=== PATIENT | female | born 1945 | race Caucasian/White ===

== ENCOUNTER 2018-06-27 05:40 | Day surgery (SDC) | payer MEDICARE, OTHER ==
[2018-06-26 12:40] LABS: BASOPHILS 0.1 % (0-2); EOSINOPHILS 1.4 % (0-7); HEMATOCRIT 31.4 % (36.0-48.0); HEMOGLOBIN 10.3 g/dL (12-16); IMMATURE GRANULOCYTES 0.2 % (0-5); LYMPHOCYTES 22.1 % (15-50); MCH 30.2 pg (26.0-34.0); MCHC 32.8 g/dL (31.0-37.0); MCV 92.1 fL (80.0-100.0); MEAN PLATELET VOLUME 9.9 fL (7.4-10.4); MONOCYTES 7.9 % (2-11); NEUTROPHILS 68.3 % (40-80); PLATELET COUNT 194 10x3/uL (130-400); RBC 3.41 10x6/uL (4.00-5.40); RDW 14.7 % (11.5-14.5); WBC 8.1 10x3/uL (4.8-10.8)
[2018-06-26 12:59] LABS: ANION GAP 11.7 mmol/L (8-16); CALCIUM 9.1 mg/dL (8.5-10.1); CARBON DIOXIDE 29.7 mmol/L (21.0-32.0); CREATININE - SERUM 3.2 mg/dL (0.6-1.3); POTASSIUM - SERUM 4.4 mmol/L (3.5-5.1)
[2018-06-26 13:03] LABS: APTT 26.2 SECONDS (22.8-39.4); INR 1.02 (0.85-1.17); PROTIME 12.8 SECONDS (11.6-15.0)
[~2018-06-27] VITALS: Ht 167.6 cm; Wt 86.2 kg
--- NOTE | ~2018-06-27 | OP ---
PATIENT NAME: MEGHANN VARELA MEDICAL RECORD: [id number] :47 LOCATION:D.LTAC, LOCATED [facility]IN [facility] ADMISSION DATE: SURGEON: ELDON BENITEZ MD DATE OF OPERATION: 06/27/2018 REFERRING PHYSICIAN: Olga Kate MD PREOPERATIVE DIAGNOSIS: Chronic kidney disease V. POSTOPERATIVE DIAGNOSIS: Chronic kidney disease V. OPERATION PERFORMED: Creation of a Katelyn AV fistula in the right antecubital space draining both to cephalic and basilic outflow. SURGEON: Eldon Benitez MD ANESTHESIA: Regional block plus MAC per YARN HAULER. PREOPERATIVE NOTE: This 73-year-old white female, senior care resident, has chronic kidney disease and it is anticipated she will require dialysis soon. She was referred to me for provision of long-term access. She is considered a candidate for an AV fistula. With the patient under regional block plus monitoring and sedation per YARN HAULER, she was prepped and draped in a sterile manner. I applied a William drain as a proximal venous tourniquet and used topical nitroglycerin on the arm and forearm. On duplex ultrasound examination, the cephalic vein in the arm above the antecubital space was rather small where as the basilic vein was quite dominant; however, I thought it was possible that a cephalic vein AV fistula might be obtained. The median cubital vein drained to both the cephalic and basilic. I made a transverse antecubital incision and exposed the veins in brachial artery. They were all controlled with Silastic loops and the median cubital vein was mobilized down into the forearm and the median antebrachial vein was divided and ligated with Vicryl ties and a Hemoclip. The deep branch or perforating branch was preserved. It was ligated and divided with Vicryl and a Hemoclip. The veins were flushed with heparinized saline and treated with topical papaverine. The brachial artery was occluded with Silastic loops and opened and flushed with heparinized saline. The deep or perforating venous tributary was bevelled and then anastomosed end-to-side to the artery with running 7-0 Prolene. The anastomosis when completed was hemostatic and there was immediate excellent flow in the fistula with release of the occluding loops. There was good pulsatile continuous Doppler flow in the cephalic vein in the upper arm as well as in the basilic vein. The wound was then closed with interrupted inverted 3-0 Vicryl and running intracuticular 4-0 Monocryl and Dermabond glue. It was dressed with Maxorb Ag, Tegaderm, and Cavilon skin prep. The patient will be discharged to a senior care today and continue her same medications. She can leave the initial operative dressing intact and come back to see me in my office in 2 weeks. My plan will be to wait and see how this fistula develops. It will likely be necessary to return her to the operating room either to ligate the basilic vein to channel blood flow into the upper arm cephalic or to ligate the cephalic vein and translocate the basilic. OPERATIVE REPORT [id number] MEGHANN VARELA TRANSINT:[id number] Voice Confirmation ID: [id number] DOCUMENT ID: [id number] ELDON BENITEZ MD at 1451 CC: OLGA KATE MD [id number] DICTATION DATE: 06/27/18 1009 FINAL TESTER: 06/27/18 1204 [facility] 06/27/18 [facility] [address] [place] [address]
[~2018-06-27 05:40] MED LIST: ALDACTONE25 MG PO; ATACAND32 MG PO; BAYER CHEWABLE81 MG PO; BIOTIN5 MG PO; BUMEX 1 MG TAB1 MG PO; BUSPAR 15 MG TA15 MG PO; BYSTOLIC5 MG PO; CALCIUM 500 + D1 TAB PO; COREG12.5 MG PO; DEMADEX20 MG PO; DIABETA5 MG PO; FERRETTS324 MG PO; GLUCOPHAGE1000 MG PO; HYDRALAZINE HC100 MG PO; LEVEMIR100 U/M1 SC; LIPITOR80 MG PO; MAG-OXIDE400 MG PO; MECLIZINE HCL25 MG PO; METOLAZONE5 MG PO; NORVASC5 MG PO; NOVOLOG100 U/M1 SC; OYSCO 500+D TAB1 TAB PO; PLAVIX75 MG PO; PROTONIX40 MG PO; PYRIDOXINE HCL100 MG PO; RESTORIL15 MG PO; SYNTHROID125 MCG PO; VITAMIN B-121000 MCG PO; VITAMIN D5000 UNIT PO; WELCHOL3.75 GM PO; ZETIA10 MG PO
[2018-06-27 06:29] VITALS: BP 147/59; Ht 167.6 cm; Wt 86.2 kg
== END 2018-06-27 11:48 | disposition home or self-care (01) ==
LOC: D.OPS 05:40 → D.PAN 08:00 → D.OPS 08:00
PROVIDERS: Surgery
DX: N18.6 End stage renal disease (principal)

== ENCOUNTER 2019-02-20 07:52 | Day surgery (SDC) | payer MEDICARE, OTHER ==
[~2019-02-20] VITALS: Ht 170.2 cm; Wt 72.6 kg
[2019-02-20 08:31] LABS: BASOPHILS 0.1 % (0-2); EOSINOPHILS 1.6 % (0-7); HEMATOCRIT 35.8 % (36.0-48.0); HEMOGLOBIN 11.4 g/dL (12-16); IMMATURE GRANULOCYTES 0.1 % (0-5); LYMPHOCYTES 18.4 % (15-50); MCH 30.6 pg (26.0-34.0); MCHC 31.8 g/dL (31.0-37.0); MEAN PLATELET VOLUME 9.9 fL (7.4-10.4); MONOCYTES 9.9 % (2-11); NEUTROPHILS 69.9 % (40-80); PLATELET COUNT 171 10x3/uL (130-400); RBC 3.73 10x6/uL (4.00-5.40)
[2019-02-20 08:38] LABS: ANION GAP 16.9 mmol/L (8-16); CALCIUM 8.8 mg/dL (8.5-10.1); CARBON DIOXIDE 27.8 mmol/L (21.0-32.0); CREATININE - SERUM 3.4 mg/dL (0.6-1.3); POTASSIUM - SERUM 3.7 mmol/L (3.5-5.1)
[2019-02-20 08:54] LABS: INR 1.12 (0.85-1.17); PROTIME 13.9 SECONDS (11.6-15.0)
[2019-02-20] MEDS ORDERED: DEMADEX20 MG PO (10:11)
[2019-02-20 10:16] VITALS: BP 112/58; Ht 170.2 cm; Wt 72.6 kg
[2019-02-20] MEDS ORDERED: HYDROCODON-ACE1 EAC7 PO (17:37)
--- NOTE | 2019-02-20 20:10 | NUR ---
IV REMOVED AMD PT ASSISTED WITH GETTING DRESSED. DISCHARGED WITH FRIEND.
--- NOTE | 2019-02-23 16:40 | OP ---
PATIENT NAME: MEGHANN SUNSHINE MEDICAL RECORD: [id number] :47 LOCATION:[facility]EL ADMISSION DATE: SURGEON: ELDON BENITEZ MD DATE OF OPERATION: 02/20/2019 REFERRED BY: Srinivasa Rolle MD PREOPERATIVE DIAGNOSES: End-stage renal disease and dependence on hemodialysis and thrombosis of brachiocephalic arteriovenous fistula. POSTOPERATIVE DIAGNOSES: End-stage renal disease and dependence on hemodialysis and thrombosis of brachiocephalic arteriovenous fistula. OPERATION PERFORMED: Creation of a brachial artery to translocated basilic vein AV fistula in the right arm, followed by laparoscopic implantation of a Medcomp swan neck dual cuff coil left-sided peritoneal dialysis catheter. SURGEON: Eldon Benitez MD ANESTHESIA: General endotracheal per HEAD OF SALES AND MARKETING. PREOPERATIVE NOTE: Mr. Sunshine is a very nice 73-year-old white female patient with end-stage renal disease, presently on chronic hemodialysis with a right internal jugular tunneled dialysis catheter. She needs long-term access. I have operated on her within the last couple of months and created a brachial artery to cephalic vein fistula on the right arm that has failed to develop although she has a developing basilic vein. I planned to go ahead with a brachial artery to translocated basilic vein fistula creation today and also she is to have laparoscopy and implantation of a PD catheter. DESCRIPTION OF PROCEDURE: Under general endotracheal anesthesia, the patient's right arm and abdomen were prepped and draped in a sterile manner. The arm was approached first. I made an incision over the basilic vein from antecubital space to axilla and freed it from the surrounding structures and divided numerous tributaries between Vicryl ties. Sensory nerves crossing the vein were preserved as much as possible. The vein was clamped and divided near the existing arterial anastomosis. It was bevelled and flushed with heparinized saline. The vein was fully mobilized up to the axilla and treated with topical papaverine. I made a superficial subcutaneous tunnel anterior and lateral to the normal course of the basilic vein and placed the vein within that tunnel, again flushed it with heparinized saline and then performed an end-to-end anastomosis between the two bevelled ends of vein just above the arterial anastomosis. I was done with running 7-0 Prolene and when completed, the suture lines were hemostatic and there was no pursestringing or stenosis at that point, an excellent flow developed immediately in the new fistula. The basilic vein had dilated to greater than a centimeter in diameter all the way from the antecubital space up to the axilla, and so it is of very good caliber already, though still quite soft it needs to mature for another month or 6 weeks before being used. The wounds were irrigated with Ancef/gentamicin solution and infiltrated with 0.25% Marcaine without epinephrine. Wound closure was performed with interrupted inverted 3-0 Vicryl without the use of a drain and skin was closed with running intracuticular 4-0 Monocryl and Dermabond glue. Dressings of Maxorb Ag, Tegaderm, and Cavilon skin prep were applied. The arm was then wrapped with Kerlix and bandage applied to hold the dressing in place. The abdomen was then exposed and the arm tucked to the side. I inserted a 5-mm OPERATIVE REPORT [id number] MEGHANN SUNSHINE 0-degree laparoscope through a small incision in right upper quadrant utilizing a 5-mm XL Optiview port. Pneumoperitoneum was established with carbon dioxide. The scope was exchanged for a 30-degree scope. I saw no significant abnormality within the abdomen. There was no significant omentum low in the abdomen or pelvis. I made an incision at about the level of the umbilicus and to the left of it after measuring from the symphysis pubis with the coiled catheter. I had decided on the basis of that measurement where the anterior rectus sheath penetration should occur. I inserted an introducer needle from that point and directed it distally and with ultrasound created an inter-rectus anterior retroperitoneal tunnel and inserted the guidewire and then dilator peel-away sheaths. The coiled catheter was of course soaked in saline and flushed with heparinized saline and then inserted through the peel-away sheath and the sheath removed. The catheter tended towards the right lower quadrant, but proved to be fairly easy to direct into the pelvis, especially after I introduced second 5-mm port instrumentation throughout the right lower quadrant. The catheter was pulled through a left lateral subcutaneous tunnel to the predetermined exit site and it was then connected to saline and flushed vigorously and then demonstrated to drain freely. A pursestring suture was placed around the catheter at the anterior rectus sheath penetration site to prevent leakage and hold the deeper of the Dacron felt cuffs within the substance of the rectus muscle. The more superficial Dacron felt cuff was left in the subcutaneous tissues about 2 cm from the exit site. The laparoscopic hardware was removed and the wounds all infiltrated with 0.25% Marcaine without epinephrine and wound closure completed with interrupted inverted 3-0 Vicryl and running intracuticular Monocryl and Dermabond glue. The incisions were dressed with Maxorb Ag, Tegaderm, and Cavilon skin prep. A chlorhexidine BioPatch was placed around the dialysis catheter at its exit site and that site was dressed with a Tegaderm and then all covered with a 4 x 4 Medipore with a catheter curled beneath it. At that point then the patient was awakened from her anesthetic and taken to the recovery room. Blood loss throughout the operation had been quite insignificant and estimated 5 cc. None was replaced. No drain was used and no surgical specimen was submitted for histopathology. PLAN: If the patient's pain is adequately controlled, she will be able to go home today and our plan for her to return to see me in my office next week. She is given a prescription for [place] 5/325 to take 1 p.o. q.4 hours p.r.n. pain. She will continue all of her other same preoperative medications and we will try to arrange to have her peritoneal dialysis catheter flushed probably on Tuesday of this week if not tomorrow at [facility]. TRANSINT:[id number] Voice Confirmation ID: [id number] DOCUMENT ID: [id number] cc: [facility] [place], [phone] ELDON BENITEZ MD at 1640 CC: SRINIVASA ROLLE MD [id number] DICTATION DATE: 02/21/19 1234 FINANCIAL PLANNING ADVISOR: 02/21/19 193 [facility] 02/20/19 [facility] [address] [place] [address]
== END 2019-02-20 20:12 | disposition home or self-care (01) ==
LOC: D.OPS 07:52
PROVIDERS: Surgery; ATTEND Internal Medicine Nephrology
DX: T82.868A Thrombosis due to vascular prosthetic devices, implants and grafts, initial encounter (principal); N18.6 End stage renal disease; Z99.2 Dependence on renal dialysis; Z01.812 Encounter for preprocedural laboratory examination

== ENCOUNTER 2019-03-02 16:23 | Inpatient (IN) | payer MEDICARE, OTHER ==
[~2019-03-02] VITALS: Ht 170.2 cm; Wt 72.1 kg
--- NOTE | ~2019-03-02 | OP ---
PATIENT NAME: MEGHANN SUNSHINE MEDICAL RECORD: [id number] :47 LOCATION:D.M2 D.2104 ADMISSION DATE:03/02/19 SURGEON: ELDON BENITEZ MD DATE OF OPERATION: 03/03/2019 REFERRING PHYSICIAN: Olga Kate MD SURGEON: Eldon Benitez MD ANESTHESIA: General by mask per DIRECTOR CENTER. PREOPERATIVE DIAGNOSIS: Abscess, left buttock, possible perianal or perirectal abscess. POSTOPERATIVE DIAGNOSIS: Probable methicillin-resistant Staphylococcus aureus skin and soft tissue abscess, furuncle or folliculitis without communication with the anal canal or rectum. OPERATION PERFORMED: Incision and drainage and debridement of left buttock abscess. SURGEON: Eldon Benitez MD PREOPERATIVE NOTE: Ms. Sunshine is a 73-year-old debilitated white female with end-stage renal disease on chronic hemodialysis. She is about a week status post op creation of a right brachial artery to translocated basilic vein AV fistula. She has a pacemaker defibrillator on the left. She has developed a painful indurated lesion with a whitish center, this is in the left buttock about 8 cm from the anal verge, possibly represents perianal or perirectal abscess or fistula. She is brought to the operating room for incision and drainage. DESCRIPTION OF PROCEDURE: Under anesthesia, the patient was placed in the lateral decubitus position, prepped and draped in sterile manner. The lesion was carefully palpated and I could feel no indurated tract leading to the anus or perianal area more directly. I incised the lesion through the white necrotic center. I obtained a small amount of liquid purulent material. This was swabbed for a stat Gram stain and also for culture for aerobic and anaerobic organisms. I excised the necrotic center or core of the lesion, which was discarded and the underlying pocket was widely opened and explored and no fistulous tract was identified. The wound was irrigated with Ancef/gentamicin solution and generally infiltrated with 1% lidocaine and 0.25% Marcaine with epinephrine. The wound was then packed with quarter-inch iodoform gauze and further sterile dry dressings applied over that and the patient awakened and taken to the recovery room. Blood loss during the procedure was insignificant and unreplaced. Sponges, instruments, and needles were accounted for. No specimen was submitted for histopathology, but serial was sent for Gram stain and culture. PLAN: The patient should be able to resume her diet and usual medications today. Pending her Gram stain and cultures and based on the clinical impression that this is an MRSA lesion, she should be started on doxycycline, and unless there is an indication to change I will plan to continue doxycycline daily for 10 days. She will do hot Sitz baths and hot baths and hot showers and wash with Hibiclens daily. I would like to see that she has 10% povidone iodine treatment OPERATIVE REPORT [id number] MEGHANN SUNSHINE in the nostrils now and then weekly times 2. Very likely she can go home tomorrow with home health referral. They can see her on nondialysis days and assist with her wound care. Basically, she is to keep it clean with hot water and soap and Hibiclens. The packing, which I placed today is not to be replaced after it comes out, and if it has not coming out, it needs to be removed before she goes home tomorrow. I will follow up with her in my office next week. There was no blood loss during the procedure. Sponges, instruments, and needles were accounted for. No drain was used. TRANSINT:[id number] Voice Confirmation ID: [id number] DOCUMENT ID: [id number] ELDON BENITEZ MD CC: OLGA KATE MD [id number] DICTATION DATE: 03/03/19 1024 COAT EXAMINER: 03/03/19 1247 ADM IN [place] [id number] [place] [id number]
[~2019-03-02 16:23] MED LIST changes: +HYDROCODON-ACE1 EAC7 PO
[2019-03-02] MEDS ORDERED: FERROUS SULFAT325 MG PO (16:52)
[2019-03-02] MEDS ORDERED: LEVEMIR IN100 UNITS/ SC (16:54)
[2019-03-02] MEDS ORDERED: SYNTHROID100 MCG PO (16:57)
[2019-03-02 17:41] VITALS: BP 140/73; BMI 24.9
[2019-03-02 19:11] LABS: BASOPHILS 0.1 % (0-2); HEMATOCRIT 31.3 % (36.0-48.0); HEMOGLOBIN 9.9 g/dL (12-16); IMMATURE GRANULOCYTES 0.1 % (0-5); LYMPHOCYTES 18.3 % (15-50); MCH 30.2 pg (26.0-34.0); MCHC 31.6 g/dL (31.0-37.0); MCV 95.4 fL (80.0-100.0); MEAN PLATELET VOLUME 10.9 fL (7.4-10.4); MONOCYTES 9.7 % (2-11); NEUTROPHILS 70.8 % (40-80); PLATELET COUNT 188 10x3/uL (130-400); RBC 3.28 10x6/uL (4.00-5.40); RDW 15.5 % (11.5-14.5); WBC 7.3 10x3/uL (4.8-10.8)
--- NOTE | 2019-03-02 19:21 | NUR ---
PT RESTING IN BED ALERT AND ORIENTED. RTR EVEN AND UNLABORED. PT DENIES ANY NEEDS OR PAIN AT THIS TIME. BED LOW CALL LIGHT WITHIN REACH. WILL CONTINUE TO MONITOR.
[2019-03-02 19:45] LABS: ALBUMIN 2.7 g/dL (3.4-5.0); ANION GAP 13.1 mmol/L (8-16); BILIRUBIN - TOTAL 0.32 mg/dL (0.2-1.3); CALCIUM 8.1 mg/dL (8.5-10.1); CARBON DIOXIDE 28.1 mmol/L (21.0-32.0); CREATININE - SERUM 2.8 mg/dL (0.6-1.3); POTASSIUM - SERUM 3.2 mmol/L (3.5-5.1); PROTEIN - SERUM 6.7 g/dL (6.4-8.2)
[2019-03-02 20:00] VITALS: BP 137/45
[2019-03-03 00:06] VITALS: BP 135/46
--- NOTE | 2019-03-03 01:13 | NUR ---
PT RESTING IN BED WITH EYES CLOSED. RR EVEN AND UNLABORED. BED LOW CALL LIGHT WITHIN REACH. WILL CONTINUE TO MONITOR.
--- NOTE | 2019-03-03 02:38 | NUR ---
I have reviewed this patient and I concur with the Shift Assessment completed by the Licensed Practical Nurse today this shift.
[2019-03-03 04:00] VITALS: BP 129/46
[2019-03-03 05:12] LABS: BASOPHILS 0.3 % (0-2); EOSINOPHILS 1.9 % (0-7); HEMATOCRIT 29.1 % (36.0-48.0); HEMOGLOBIN 9.1 g/dL (12-16); IMMATURE GRANULOCYTES 0.2 % (0-5); LYMPHOCYTES 26.5 % (15-50); MCHC 31.3 g/dL (31.0-37.0); MEAN PLATELET VOLUME 10.3 fL (7.4-10.4); MONOCYTES 10.8 % (2-11); NEUTROPHILS 60.3 % (40-80); PLATELET COUNT 172 10x3/uL (130-400); RBC 3.03 10x6/uL (4.00-5.40); WBC 5.9 10x3/uL (4.8-10.8)
[2019-03-03 05:17] LABS: INR 1.24 (0.85-1.17); PROTIME 15.1 SECONDS (11.6-15.0)
[2019-03-03 05:30] LABS: ANION GAP 14.5 mmol/L (8-16); CALCIUM 8.3 mg/dL (8.5-10.1); CARBON DIOXIDE 26.6 mmol/L (21.0-32.0); CREATININE - SERUM 3.3 mg/dL (0.6-1.3); POTASSIUM - SERUM 3.1 mmol/L (3.5-5.1)
--- NOTE | 2019-03-03 07:15 | NUR ---
PT ASLEEP, DI DNOT WAKE I ENTERED. DI DNOT FURTHER DISTURB AT THIS TIME. CL IN REACH. SRX2.
[2019-03-03] MEDS ORDERED: HYDROCODON-ACE1 EAC7 PO (09:46)
[2019-03-03 09:50] VITALS: Ht 170.2 cm; Wt 72.1 kg
[2019-03-03] MEDS ORDERED: HIBICLENS WASH (09:50)
[2019-03-03 09:51] VITALS: BP 130/53
[2019-03-03] MEDS ORDERED: POVIDONE IODINE 10% (09:55)
[2019-03-03] MEDS ORDERED: VIBRAMYCIN 100100 MG PO (09:57)
[2019-03-03 13:11] VITALS: BP 116/51
--- NOTE | 2019-03-03 14:13 | NUR ---
I have reviewed this patient and I concur with the Shift Assessment completed by the Licensed Practical Nurse today this shift.
--- NOTE | 2019-03-03 16:43 | NUR ---
PT REFUSED SCDS.
[2019-03-03 17:40] VITALS: BP 120/57
--- NOTE | 2019-03-03 18:22 | NUR ---
PT FAMILY IN ROOM. PT ATTEMPTED TO PULL OUT CATH, DID NOT SUCCED. WATCHING CLOSELY IN CASE SH REATTEMPTS. CL IN REACH. SRX2.
--- NOTE | 2019-03-03 18:23 | NUR ---
LAS NOT NOT FOR HER. THI SPT HAD BUTTOX DRESSING CHANGED. BLEEDING, WILL CHANGE AGAIN NEEDED.
--- NOTE | 2019-03-03 20:00 | NUR ---
ROUNDS COMPLETED. VSS, AAX4. NO S/S OF RESP DISTRESS. RR EVEN AND UNLABORED. ASSESED PT BUTTOCK. DRESSING C/D/I. WITH DEPENDS OVER THE DRESSING. MEDS GIVEN AT THIS TIME. DRESSING TO RIGHT LEG C/D/I. PT DENIES ANY FURTHER NEEDS AT THIS TIME. WILL CPOC. CL IN REACH, BED IN LOW, SR UP X2.
--- NOTE | 2019-03-03 22:53 | NUR ---
ASSESED PT DRESSING ON BUTTOCKS. DRESSING WAS BLOOD TINGED DID NOT REINFORCE DRESSING PER PROVIDERS ORDER. CLEANED THE AREA AND APPLIED NEW DEPEND ON PT. PT RESTING COMFORTABLY AT THIS TIME. WILL CPOC.
[2019-03-04 00:20] VITALS: BP 141/50
[2019-03-04 00:29] VITALS: BP 150/42
--- NOTE | 2019-03-04 04:22 | NUR ---
REMOVED PT DRESSING. CLEAN THE SITE. PACKING STILL INTACT. APPLIED NEW DRESSING. PT TOLERATE WELL. PT DENIES ANY FURTHER NEEDS AT THIS TIME. WILL CPOC. CL IN REACH, BED IN LOW, SR UP X2.
[2019-03-04 05:56] VITALS: BP 145/49
--- NOTE | 2019-03-04 08:18 | NUR ---
PT ASLEEP, WOKE EASILY. NO COMPLAINTS OR CONCERNS VOICED. DRESSING C/D/I AT THIS TIME. CL IN REACH, SRX2.
[2019-03-04 09:13] VITALS: BP 139/47
[2019-03-04 10:17] LABS: BASOPHILS 0.4 % (0-2); EOSINOPHILS 1.5 % (0-7); HEMATOCRIT 29.6 % (36.0-48.0); HEMOGLOBIN 9.2 g/dL (12-16); IMMATURE GRANULOCYTES 0.3 % (0-5); LYMPHOCYTES 12.9 % (15-50); MCH 29.8 pg (26.0-34.0); MCHC 31.1 g/dL (31.0-37.0); MCV 95.8 fL (80.0-100.0); MEAN PLATELET VOLUME 10.4 fL (7.4-10.4); MONOCYTES 10.3 % (2-11); NEUTROPHILS 74.6 % (40-80); PLATELET COUNT 175 10x3/uL (130-400); RBC 3.09 10x6/uL (4.00-5.40); RDW 15.5 % (11.5-14.5); WBC 7.3 10x3/uL (4.8-10.8)
[2019-03-04 10:25] LABS: ANION GAP 18.9 mmol/L (8-16); CALCIUM 8.3 mg/dL (8.5-10.1); CARBON DIOXIDE 23.8 mmol/L (21.0-32.0); CREATININE - SERUM 4.7 mg/dL (0.6-1.3); POTASSIUM - SERUM 3.7 mmol/L (3.5-5.1)
--- NOTE | 2019-03-04 11:33 | NUR ---
RX FOR DOXYCYCLINE 100 MG DAILY X 10 DAYS CALLED TO [facility], SPOKE WITH PHARMACIST, MARISABEL
--- NOTE | 2019-03-04 12:41 | MORECARE ---
CASE MANAGEMENT DISCHARGE SUMMARY PATIENT: MEGHANN VARELA UNIT: [id number] ADM DATE: 03/02/19 AGE: 73 : 46 SEX: F ROOM/BED: D.2104 AUTHOR: DEE ANDERSEN PHYSICIAN: REFERRING PHYSICIAN: SRINIVASA BURLESON MD DATE OF SERVICE: 03/04/19 Discharge Plan Patient Name: MEGHANN VARELA Facility: [facility]:[place] : 1945 Planned Disposition: Home with Home Health Anticipated Discharge Date: 03/04/19 Discharge Date: Expected LOS: 2 Initial Reviewer: [email or web address] Initial Review Date: 03/02/2019 Generated: 03/04/19 1:41 pm Patient Name: MEGHANN VARELA Page [phone] at 1241 All edits/amendments must be made on the electronic document DICTATION DATE: 03/04/19 1240 ART FRAMING MANAGER: AUSTEN 03/04/19 1240 RPT#: [id number] DC DATE: STATUS: ADM IN [facility] [address] [place] [address] END OF REPORT
--- NOTE | 2019-03-04 12:48 | MORECARE ---
CASE MANAGEMENT DISCHARGE SUMMARY PATIENT: MEGHANN VARELA UNIT: [id number] ADM DATE: 03/02/19 AGE: 73 : 46 SEX: F ROOM/BED: D.2104 AUTHOR: DEE ANDERSEN PHYSICIAN: REFERRING PHYSICIAN: SRINIVASA BURLESON MD DATE OF SERVICE: 03/04/19 Discharge Plan Patient Name: MEGHANN VARELA [facility] [facility] 1945 Planned Disposition: Home with Home Health Anticipated Discharge Date: 03/04/19 Discharge Date: Expected LOS: 2 Initial Reviewer: [email or web address] Initial Review Date: 03/02/2019 Generated: 03/04/19 1:48 pm DCPIA - Discharge Planning Initial Assessment Updated by [email or web address]: Yajaira Escobar on 03/04/19 12:42 pm * Is the patient Alert and Oriented? Yes * How many steps to enter\exit or inside your home? RAMP * PCP DR BAGLEY * Pharmacy [facility] [address] * Preadmission Environment Home Alone * ADLs Independent * Equipment Cane Grab Bars Rolling Walker Shower Chair Wheelchair * List name and contact numbers for known caregivers / representatives who currently or will assist patient after discharge: [facility] [phone] * Verbal permission to speak to the caregivers and representatives has been obtained from the patient. No * Community resources currently utilized None * Additional services required to return to the preadmission environment? Yes * Can the patient safely return to the preadmission environment? Yes * Has this patient been hospitalized within the prior 30 days at any hospital? Yes Last DP export: 03/04/19 11:41 am Patient Name: MEGHANN VARELA Page 82503 at 1248 All edits/amendments must be made on the electronic document DICTATION DATE: 03/04/191246 FIBROUS WALLBOARD INSPECTOR: AUSTEN 03/04/191246 RPT#: [id number] DC DATE: STATUS: ADM IN [facility] [address] [place] [address] END OF REPORT
--- NOTE | 2019-03-04 13:02 | MORECARE ---
CASE MANAGEMENT DISCHARGE SUMMARY PATIENT: MEGHANN VARELA UNIT: [id number] ADM DATE: 03/02/19 AGE: 73 : 46 SEX: F ROOM/BED: D.2106 AUTHOR: GANESH,DOC PHYSICIAN: REFERRING PHYSICIAN: SRINIVASA BURLESON MD DATE OF SERVICE: 03/04/19 Discharge Plan Patient Name: MEGHANN VARELA Facility: [facility]:[place] : 1945 Planned Disposition: Home with Home Health Anticipated Discharge Date: 03/04/19 Discharge Date: Expected LOS: 2 Initial Reviewer: [email or web address] Initial Review Date: 03/02/2019 Generated: 03/04/19 2:02 pm Comments DCP- Discharge Planning Updated by [email or web address]: Yajaira Escobar on 03/04/19 11:[address] CM MET WITH THE PATIENT AT THE BEDSIDE. SHE IS ALERT AND ORIENTED X4. RECEIVED MD ORDER FOR HOME HEALTH FOR DRESSING CHANGES. TERRY ADVISED THE PATIENT & SHE IS IN AGREEMENT W/ H/H SERVICES. SHE HAS HAD HOME HEALTH PREVIOUSLY WITH [facility]. SHE WAS VERY PLEASED WITH HER CARE AND WISHES TO UTILIZE [facility] AGAIN. HAD RECENT ADMIT 12/29/2018 AT [facility] UNRELATED TO PRESENT ADMISSION. [facility] H/H PHONE NUMBER [phone] FAX [phone]. DR BAGLEY IS HER PCP. SHE SEES SAHIL THE CASE WORKER MOST OF THE TIME. SHE RECEIVES HD M/W/F AT [address] [facility]. A FRIEND DRIVES HER TO HD. SHE STATES AT THE END OF THE MONTH SHE WILL START TRAINING FOR DIALYSIS AT HOME. DME PROVIDER- [facility]- HAS CANES, WALKER, ROLLATOR, SHOWER CHAIR, SAFETY BARS IN THE SHOWER. HOME HEALTH PROVIDER LIST PROVIDED AND PATIENT CHOICE FORM SIGNED. SIGNED COPY TO PATIENT, SIGNED COPY TO THE HARD COVER CHART. TC TO [facility]. SPOKE WITH JOSELO. PLAN TO VISIT PATIENT ON TUESDAY SHE WILL BE AT HD ON TUESDAY. CM FAXED REFERRAL, DISCHARGE SUMMARY, OPERATIVE REPORT, MD ORDER, D/C INSTRUCTIONS AND DISCHARGE MED LIST. CM SPOKE WITH PRIMARY NURSE AND REQUESTED DRESSINGS BE PROVIDED FOR 3/4 CHANGES. PATIENT DENIES ANY ADDITIONAL NEEDS. D/C IMM DISCUSSED AND SIGNED/ COPY TO THE PATIENT. . DCPIA - Discharge Planning Initial Assessment Updated by [email or web address]: Yajaira Escobar on 03/04/19 12:42 pm * Is the patient Alert and Oriented? Yes * How many steps to enter\exit or inside your home? RAMP * PCP DR BAGLEY * Pharmacy [facility] * Preadmission Environment Home Alone * ADLs Independent * Equipment Cane Grab Bars Rolling Walker Shower Chair Wheelchair * List name and contact numbers for known caregivers / representatives who currently or will assist patient after discharge: [facility]- [phone] * Verbal permission to speak to the caregivers and representatives has been obtained from the patient. No * Community resources currently utilized None * Additional services required to return to the preadmission environment? Yes * Can the patient safely return to the preadmission environment? Yes * Has this patient been hospitalized within the prior 30 days at any hospital? Yes Last DP export: 03/04/19 11:48 am Patient Name: MEGHANN VARELA Page 57793 at 1302 All edits/amendments must be made on the electronic document DICTATION DATE: 03/04/19 1302 SPINNER IRON: AUSTEN 03/04/19 1302 RPT#: [id number] DC DATE: STATUS: ADM IN [facility] [address] [place] [address] END OF REPORT
--- NOTE | 2019-03-04 13:40 | NUR ---
PT ESCORTED OUT VIA WHEELCHAIR TO FRIENDS CAR. NO COMPLAINTS/CONCERNS VOICED.
--- NOTE | 2019-03-05 08:48 | MORECARE ---
CASE MANAGEMENT DISCHARGE SUMMARY PATIENT: MEGHANN VARELA UNIT: [id number] ADM DATE: 03/02/19 AGE: 73 : 47 SEX: F ROOM/BED: D.2108 AUTHOR: GANESH,DOC PHYSICIAN: REFERRING PHYSICIAN: SRINIVASA BURLESON MD DATE OF SERVICE: 03/05/19 Discharge Plan Patient Name: MEGHANN VARELA Facility: [facility]:[place] : 1945 Planned Disposition: Home with Home Health Anticipated Discharge Date: 03/04/19 Discharge Date: 03/04/2019 Expected LOS: 2 Initial Reviewer: [email or web address] Initial Review Date: 03/02/2019 Generated: 03/05/19 9:47 am Comments DCP- Discharge Planning Updated by [email or web address]: Yajaira Escobar on 03/04/19 11:[address] CM MET WITH THE PATIENT AT THE BEDSIDE. SHE IS ALERT AND ORIENTED X4. RECEIVED MD ORDER FOR HOME HEALTH FOR DRESSING CHANGES. TERRY ADVISED THE PATIENT & SHE IS IN AGREEMENT W/ H/H SERVICES. SHE HAS HAD HOME HEALTH PREVIOUSLY WITH [facility]. SHE WAS VERY PLEASED WITH HER CARE AND WISHES TO UTILIZE [facility] AGAIN. HAD RECENT ADMIT 12/29/2018 AT [facility] UNRELATED TO PRESENT ADMISSION. [facility] H/H PHONE NUMBER [phone] FAX [phone][address] BAGLEY IS HER PCP. SHE SEES [employer]H[facility] [employer] MOST OF THE TIME. SHE RECEIVES HD M/W/F AT [address] [facility]. A FRIEND DRIVES HER TO HD. SHE STATES AT THE END OF THE MONTH SHE WILL START TRAINING FOR DIALYSIS AT HOME. DME PROVIDER- [facility]- HAS CANES, WALKER, ROLLATOR, SHOWER CHAIR, SAFETY BARS IN THE SHOWER. HOME HEALTH PROVIDER LIST PROVIDED AND PATIENT CHOICE FORM SIGNED. SIGNED COPY TO PATIENT, SIGNED COPY TO THE HARD COVER CHART. TC TO [facility]. SPOKE WITH JOSELO. PLAN TO VISIT PATIENT ON TUESDAY SHE WILL BE AT HD ON TUESDAY. CM FAXED REFERRAL, DISCHARGE SUMMARY, OPERATIVE REPORT, MD ORDER, D/C INSTRUCTIONS AND DISCHARGE MED LIST. TERRY SPOKE WITH PRIMARY NURSE AND REQUESTED DRESSINGS BE PROVIDED FOR 3/4 CHANGES. PATIENT DENIES ANY ADDITIONAL NEEDS. D/C IMM DISCUSSED AND SIGNED/ COPY TO THE PATIENT. . DCPIA - Discharge Planning Initial Assessment Updated by [email or web address]: Yajaira Escobar on 03/04/19 12:42 pm * Is the patient Alert and Oriented? Yes * How many steps to enter\exit or inside your home? RAMP * PCP DR BAGLEY * Pharmacy [facility] [address] * Preadmission Environment Home Alone * ADLs Independent * Equipment Cane Grab Bars Rolling Walker Shower Chair Wheelchair * List name and contact numbers for known caregivers / representatives who currently or will assist patient after discharge: EMILY MARCOSCHI [facility]- [phone] * Verbal permission to speak to the caregivers and representatives has been obtained from the patient. No * Community resources currently utilized None * Additional services required to return to the preadmission environment? Yes * Can the patient safely return to the preadmission environment? Yes * Has this patient been hospitalized within the prior 30 days at any hospital? Yes Last DP export: 03/04/19 12:02 pm Patient Name: MEGHANN VARELA Page [id number] at 0848 All edits/amendments must be made on the electronic document DICTATION DATE: 03/05/19846 AD COMPOSITOR: AUSTEN 03/05/19846 RPT#: [id number] DC DATE:03/04/19 STATUS: DIS IN [place] [id number] [place] [address] END OF REPORT
== END 2019-03-04 13:41 | disposition home health service (06) | DRG 602 ==
LOC: D.M2 16:23
PROVIDERS: Internal Medicine Nephrology; Surgery; ADMIT Internal Medicine Nephrology; ATTEND Internal Medicine Nephrology
PROC: 0H98XZZ Drainage of Buttock Skin, External Approach (ICD-10-PCS; principal; 2019-03-03 09:00)
DX: L02.31 Cutaneous abscess of buttock (principal); N18.6 End stage renal disease; I12.0 Hypertensive chronic kidney disease with stage 5 chronic kidney disease or end stage renal disease; B95.62 Methicillin resistant Staphylococcus aureus infection as the cause of diseases classified elsewhere; E11.22 Type 2 diabetes mellitus with diabetic chronic kidney disease; I25.10 Atherosclerotic heart disease of native coronary artery without angina pectoris

== ENCOUNTER → 2019-04-02 15:55 | Outpatient (CLI) | payer MEDICARE, OTHER ==
[2019-03-03 09:50] VITALS: BMI 24.9
[~2019-04-02 15:55] MED LIST changes: +FERROUS SULFAT325 MG PO; +HIBICLENS WASH; +LEVEMIR IN100 UNITS/ SC; +POVIDONE IODINE 10%; +SYNTHROID100 MCG PO; +VIBRAMYCIN 100100 MG PO
--- NOTE | 2019-04-02 18:15 | NUR ---
PT CAME TO US AT 1645 FOR AN ULTRASOUND OF THE ABDOMEN, NO ONE HAD CALLED TO TELL US IT WAS ADDED ON. I CALLED THE OFFICE AND SPOKE WITH PAULETTE PERLA, SHE SAID THAT DIALYSIS CALLED AND SAID THE PT HAD A LARGE HEMATOMA ON HER LEFT UPPER BACK AND THE DR WAS OUT AND SAID ORDER WHATEVER. I TOLD HER TO SEND AN ORDER FOR A SOFT TISSUE ULTRASOUND AND SHE SAID IT IS NOT IN HER SYSTEM SO I TOLD HER TO PUT IN MISCELLANEOUS ULTRASOUND AND DESCRIBE THE EXAM IN THE NOTES. I I RECEIVED THE ORDER BY FAX. PAULETTE SAID SHE WOULD BE IN THE OFFICE UNTIL 530 PM WHEN I GOT THE PATIENT BACK SHE TOLD ME SHE HAD A STENT PLACED IN HER RIGHT LEG LAST TUESDAY THRU HER LEFT GROIN. NOW I AM THINKING MAYBE THIS COULD BE A PSEDUOANEURSYM SO I CALLED PAULETTE BACK AND TOLD HER MAYBE WE SHOULD DO THE GROIN TO CHECK FOR PSEUDO SINCE THE HEMATOMA WAS REALLY ALL AROUND THE LT GROIN TO THE BACK. SHE SAID OK. I DID THE EXAM AND SURE ENOUGH THERE WAS A SEALED OFF LT GROIN PSEUDOANEURYSM. DR TREADWELL READ IT BUT WE HAD NO NUMBER TO CALL AFTER HOURS SINCE WE GOT THE ANSWER MACHINE. HE SAID SINCE IT WAS SEALED OFF THERE WAS NOTHING ELSE THAT COULD BE DONE AND TOLD ME TO SEND THE PT HOME AND HAVE HER CALL THE MD IN THE AM. ABOUT 535 PAULETTE CALLED TO CHECK ON THE SCENARIO AND I REPORTED TO HER ABOUT THE PSEUDO AND ASKED HER TO SEND ANOTHER ORDER FOR A LT GROIN ULTRASOUND.
== END | disposition home or self-care (01) ==
LOC: D.US 15:55
PROVIDERS: ATTEND Internal Medicine Cardiovascular Disease
DX: T14.8XXA Other injury of unspecified body region, initial encounter (principal)